=== PATIENT | female | born 1955 | race Caucasian/White ===

== ENCOUNTER → 2016-11-21 | Day surgery (SDC) | payer BC ==
[~2016-11-21] MED LIST: AMOXICILLIN PO; FLONASE 0.05% N16 G1 INH; MOTRIN400 MG PO; NO MEDICATIONS; RONDEC-DM SYRU120 ML PO; STAHIST TA1 TAB.SR . PO; ZOFRAN PO; ZOFRANODT SL; [UNRECOGNIZED DRUG - REMARK]
--- NOTE | ~2016-11-21 | OR ---
Unit #: [id number] #: [id number] Patient: KAYLYNN JACOBSEN [id number] [address] [place], [place] [address] [id number] O MR#: [id number] NAME: KAYLYNN JACOBSEN ROOM: Date of Procedure: 11/21/2016 Admission Date: 11/21/2016 Surgeon: Wagner Sanchez M.D. : 1955 Attending Physician: Wagner Sanchez M.D. Referring Physician: Wagner Sanchez M.D. Primary Care Physician: David Lyn M.D. OPERATIVE REPORT PREOPERATIVE DIAGNOSES The patient presented with history of periumbilical and upper abdominal pain along with dyspepsia and burping and bloating. She does have history of sleep apnea, but does not use any CPAP machine. PROCEDURE PERFORMED Upper gastrointestinal endoscopy and biopsy. POSTOPERATIVE DIAGNOSES Grade 1 distal erosive esophagitis. Otherwise, normal examination up to third part of the duodenum. A biopsy was obtained from the antrum for CLOtest. RECOMMENDATIONS The patient will be started on pantoprazole 40 mg p.o. daily. She will be followed up in the office in 3 months' time. If she is still symptomatic, a CT scan of the pancreas will be done. SEDATION USED MAC. DESCRIPTION OF PROCEDURE Following detailed explanations of potential risks and complications of an upper endoscopy, namely perforation, bleeding, and complications related to sedation, the patient was brought to GI lab and laid in the left lateral decubitus position. Lubricated tip of the Olympus video upper endoscope was passed through bite block into the proximal esophagus under direct vision. The entire esophageal mucosa was examined. The patient was noted to have grade 1 distal erosive esophagitis. The scope was then advanced into the gastric cavity and the latter was insufflated. Mucosa of the fundus, body, and antrum examined and appeared normal. Pylorus was intubated with visualization of the normal duodenal bulb and second and third part of the duodenum. Upon withdrawal and retroflexion, incisura, cardia, and greater curve examined and no additional findings noted. Biopsies obtained from the antrum for CLOtest. The scope was then withdrawn in the distal esophagus. The entire esophageal mucosa was examined all the way up to pharynx. No additional findings noted. The patient tolerated the procedure without any postprocedure complications. Dictated by... Wagner Sanchez M.D. Unit #: [id number] #: [id number] Patient: KAYLYNN JACOBSEN KATHERYN/elsa TD: 11/21/2016 22:36 JOB #: [id number] OPERATIVE REPORT Page 1 of 1 X Wagner Sanchez MD PROCEDURE OPERATIVE NOTE
== END | disposition home or self-care (01) ==
LOC: COPS 06:50
PROVIDERS: Internal Medicine Gastroenterology
PROC: 0DB78ZX Excision of Stomach, Pylorus, Via Natural or Artificial Opening Endoscopic, Diagnostic (ICD-10-PCS; principal; 2016-11-21 08:00)
DX: K21.0 Gastro-esophageal reflux disease with esophagitis (principal); R14.0 Abdominal distension (gaseous); G47.30 Sleep apnea, unspecified; Z90.710 Acquired absence of both cervix and uterus; Z90.722 Acquired absence of ovaries, bilateral; Z88.5 Allergy status to narcotic agent
CPT/HCPCS: 76705; 87077

== ENCOUNTER → 2016-11-21 | Outpatient (CLI) | payer BC ==
--- NOTE | ~2016-11-21 | US6 ---
[facility] A Service of [facility] RADIOLOGY TEXT RESULTS PATIENT: KAYLYNN JACOBSEN LOCATION: [facility] : 53 UNIT #: [id number] AGE: [address]: Wagner Sanchez MD SEX: F ORDER DR: [id number] [facility] [place] [address] [place], [place] [address] [id number] O MR#: [id number] Acc #: [id number] NAME: KAYLYNN JACOBSEN : 1955 SEX: F STUDY DATE/TIME: 11/21/2016 9:20 UNIT: CGUS ROOM: STUDY DESCRIPTION: US Abdominal Limited Attending Physician: Wagner Sanchez M.D. Ordering Physician: Wagner Sanchez M.D. Primary Care Physician: David Lyn M.D. MEDICAL IMAGING REPORT This report is preliminary unless electronic signature is present EXAM Right upper quadrant ultrasound, 11/21/2016. HISTORY Right upper quadrant abdominal pain, acute epigastric pain, abdominal bloating and dyspepsia intermittently for 3 months. FINDINGS The liver demonstrates an increase in echotexture with attenuation of the ultrasound beam characteristic of fatty infiltration. No cystic or solid mass lesions were seen in the liver. The intra and extrahepatic bile ducts are not dilated. The gallbladder contains multiple shadowing gallstones but there is no evidence of gallbladder wall thickening or pericholecystic fluid. The common duct measures 5 mm. The pancreas and right kidney are normal. IMPRESSION 1. Cholelithiasis. 2. Fatty infiltration of the liver. Dictated by... Keagan Garcia M.D. THIS IS AN ELECTRONICALLY VERIFIED REPORT Keagan Garcia M.D. at 11/23/2016 8:16 AM ARTIS/rosemary TD: 11/21/2016 15:16 JOB #: [id number] MEDICAL IMAGING REPORT [facility] A Service [facility] RADIOLOGY TEXT RESULTS PATIENT: KAYLYNN JACOBSEN LOCATION: [facility] : 53 UNIT #: [id number] AGE: [address]: Wagner Sanchez MD SEX: F ORDER DR: Page 1 of 1 COPY
== END | disposition home or self-care (01) ==
LOC: CGUS 08:07
DX: R10.13 Epigastric pain (principal); R14.0 Abdominal distension (gaseous); K80.20 Calculus of gallbladder without cholecystitis without obstruction; K76.0 Fatty (change of) liver, not elsewhere classified
CPT/HCPCS: 76705